=== PATIENT | male | born 1930 | race Caucasian/White ===

== ENCOUNTER 2020-03-13 07:24 | Emergency (ER) | payer MEDICARE ==
[~2020-03-13] VITALS: Ht 175.3 cm; Wt 67.0 kg
[~2020-03-13 07:24] MED LIST: ASPI-515 PO; CHOL200040 PO; INFL100V IV; LEVO50TA PO; METO25TA35 PO; MULT-717 PO; OMEG500C PO; OMEP-110 PO; POTA10TA6 PO; PRAV20TA2 PO; SELE200T10 PO; TRAM50TA2 PO; VITA1TAB42 PO
--- NOTE | 2020-03-13 07:38 | NUR ---
KHUSHBU GOMEZ, PT WITH GLF LAC TO R UA. PT WITH -LOC, NO DIZZINESS, CP, SOB. PT WITH REPORTED BP BY EMS, 90/40S THEN UPON ENTERING ED 70/30. BP IN RM, 151/57. PT AOX4. REPORTS HE DOES TAKE BP MEDS BUT DID NOT TAKE THEM THIS AM. PT STATES HE WAS TRYING TO OPEN THE SLIDING DOOR TO TAKE HIS DOG OUT AND SLIPPED CAUGHT HIS ARM ON THE DOOR, SUSTAINING A 2IN LAC PER EMS REPORT, LAC BANDAGED UPON ARRIVAL. PT THEN LANDED ON HIS KNEE, SMALL ABRASION NOTED TO L KNEE. PT TO CARD MONITOR, BP, CONT PULSE OX Addendum: 03/13/20 at 0746 by [email or web address] PT WITH FSBG OF 66 PER EMS
--- NOTE | 2020-03-13 08:14 | NUR ---
KARY , WANTS TO BE CALLED WHEN PT IS READY FOR DC
[2020-03-13 08:18] LABS: ALBUMIN 3.3 g/dL (3.4-5.0); ANION GAP 8 mmol/L (5-15); CALCIUM 8.8 mg/dL (8.5-10.1); CHLORIDE 109 mmol/L (98-107); CREATININE 1.67 mg/dL (0.7-1.3)
[2020-03-13] MEDS ORDERED: DIPH,PERTUSS(ACELL),TET VAC/PF 0.5 ML IM-VACC ONE ×3 (08:29→09:00)
[2020-03-13 08:46] LABS: BASOPHILS # (AUTO) 0.02 x10^3/uL (0-0.1); BASOPHILS % (AUTO) 0 % (0-1); EOSINOPHILS # (AUTO) 0.11 x10^3/uL (0-0.4); EOSINOPHILS % (AUTO) 2 % (1-7); LYMPHOCYTES # (AUTO) 1.66 x10^3/uL (1-3.4); LYMPHOCYTES % (AUTO) 28 % (22-44); MD SCAN; MEAN CORPUSCULAR HEMOGLOBIN 30.3 pg (27.5-34.5); MEAN CORPUSCULAR HGB CONC 33.5 g/dL (33.2-36.2); MEAN CORPUSCULAR VOLUME 90.7 fL (81-97); MEAN PLATELET VOLUME 10.4 fL (7.4-10.4); MONOCYTES # (AUTO) 0.53 x10^3/uL (0.2-0.8); MONOCYTES % (AUTO) 9 % (2-9); NEUTROPHILS # (AUTO) 3.61 x10^3/uL (1.8-6.8); NEUTROPHILS % (AUTO) 61 % (42-75); PLATELET COUNT 75 x10^3/uL (130-400); RED BLOOD COUNT 5.21 x10^6/uL (4.38-5.82); RED CELL DISTRIBUTION WIDTH 14.2 % (9.4-14.8)
[2020-03-13 09:00] VITALS: BP 176/67
[2020-03-13] MEDS ORDERED: DIPHTHERIA-TETANUS ADULT 0.5ML IM-VACC ONE (09:00)
--- NOTE | 2020-03-13 09:00 | NUR ---
PT BACK FROM IMAGING, MEDICATED PER MAR
[2020-03-13] MEDS ORDERED: LIDOCAINE-MPF 1%, 5ML ONE (09:15)
[2020-03-13] MEDS ORDERED: LIDOCAINE 1%, 10ML INFIL ONE (09:30)
--- NOTE | 2020-03-13 10:10 | NUR ---
PRESSURE DRESSING APPLIED TO RHIANNON. PT TO DC, CALLED TO [facility] PT
== END 2020-03-13 10:28 | disposition home or self-care (01) ==
LOC: ED 08:20
DX: S40.851A Superficial foreign body of right upper arm, initial encounter (principal); I45.9 Conduction disorder, unspecified; W01.0XXA Fall on same level from slipping, tripping and stumbling without subsequent striking against object, initial encounter; Y93.89 Activity, other specified; Y92.098 Other place in other non-institutional residence as the place of occurrence of the external cause; Y99.8 Other external cause status
CPT/HCPCS: 12041; 36415; 80048; 82040; 85025; 90471; 90715; 93005; 99285

== ENCOUNTER → 2020-11-07 | Outpatient (CLI) | payer MEDICARE ==
[~2020-11-07] MED LIST changes: +AMLO2.5T5 PO; +APIX2.5T PO; -ASPI-515 PO; +ASPI-963 PO; +B COMPLEX PO; +CENTRUM SILVER PO; +CHOL10003 PO; +COQ10 PO; +COSENTYX SQ; +DOXA4TAB2 PO; +ISOS30TA8 PO; +METOPROLOL PO; +POTASSIUM PO; +PRAV40TA PO; +SELENIUM PO; +ZINC220C7 PO
== END | disposition home or self-care (01) ==
LOC: CVU 10:52
PROVIDERS: ATTEND Registered Nurse
DX: I65.23 Occlusion and stenosis of bilateral carotid arteries (principal); I10 Essential (primary) hypertension; E78.2 Mixed hyperlipidemia
CPT/HCPCS: 93880

== ENCOUNTER 2021-05-31 07:52 | Outpatient (CLI) | payer MEDICARE ==
[2021-05-31 08:59] LABS: CHLORIDE 101 mmol/L (98-107)
[2021-05-31 09:05] LABS: ALANINE AMINOTRANSFERASE 19 U/L (12-78); ALBUMIN 3.4 g/dL (3.4-5.0); ALKALINE PHOSPHATASE 73 U/L (45-117); ANION GAP 7 mmol/L (5-15); BILIRUBIN,TOTAL 1.5 mg/dL (0.2-1.0); CHOL/HDL RATIO 2.8; CHOLESTEROL, TOTAL 109 mg/dL (140-239); CREATININE 1.44 mg/dL (0.7-1.3); HDL CHOL % 36 % (26-37); HDL CHOLESTEROL (DIRECT) 39 mg/dL (40-60); LDL CHOLESTEROL,CALCULATED 58 mg/dL (54-169); LDL/HDL RATIO 1.5 (0.5-3.0); TOTAL PROTEIN 7.2 g/dL (6.4-8.2); TRIGLYCERIDES 58 mg/dL (50-200); VLDL CHOLESTEROL 12 mg/dL (0-25)
== END 2021-05-31 23:59 | disposition home or self-care (01) ==
LOC: LAB 07:52
PROVIDERS: ATTEND Family Medicine
DX: I11.0 Hypertensive heart disease with heart failure (principal); N17.0 Acute kidney failure with tubular necrosis; E78.2 Mixed hyperlipidemia; I50.31 Acute diastolic (congestive) heart failure; I50.9 Heart failure, unspecified; I48.91 Unspecified atrial fibrillation; I21.4 Non-ST elevation (NSTEMI) myocardial infarction; I25.10 Atherosclerotic heart disease of native coronary artery without angina pectoris; I25.119 Atherosclerotic heart disease of native coronary artery with unspecified angina pectoris; I27.20 Pulmonary hypertension, unspecified
CPT/HCPCS: 36415; 80053; 80061

== ENCOUNTER 2021-06-10 07:56 | Observation (INO) | payer MEDICARE ==
[~2021-06-10] VITALS: Ht 172.7 cm; Wt 66.0 kg
[2021-06-10] MEDS ORDERED: CARV6.2512 PO (08:50)
[2021-06-10] MEDS ORDERED: LOSA50TA14 PO (08:53)
[2021-06-10] MEDS ORDERED: LOSA25TA25 PO (08:53)
[2021-06-10 09:45] LABS: BASOPHILS % (AUTO) 1 % (0-1); EOSINOPHILS % (AUTO) 2 % (1-7); LYMPHOCYTES % (AUTO) 24 % (22-44); MEAN CORPUSCULAR HEMOGLOBIN 29.6 pg (27.5-34.5); MEAN CORPUSCULAR HGB CONC 33.7 g/dL (33.2-36.2); MEAN PLATELET VOLUME 10.6 fL (7.4-10.4); MONOCYTES % (AUTO) 11 % (2-9); NEUTROPHILS % (AUTO) 62 % (42-75); PLATELET COUNT 88 x10^3/uL (130-400); RED CELL DISTRIBUTION WIDTH 15.2 % (9.4-14.8)
[2021-06-10 09:49] LABS: INTERNATIONAL NORMALIZED RATIO 1.08 (0.93-1.1); PROTHROMBIN TIME 11.5 Seconds (9.6-11.5)
[2021-06-10 09:53] LABS: ANION GAP 6 mmol/L (5-15); CALCIUM 8.5 mg/dL (8.5-10.1); CHLORIDE 99 mmol/L (98-107)
[2021-06-10 09:57] LABS: CREATININE 1.41 mg/dL (0.7-1.3)
[2021-06-10] MEDS ORDERED: CEFAZOLIN 1,000 MG ONE (10:18)
[2021-06-10] MEDS ORDERED: FENTANYL PF 100 MCG/2ML ONE (10:18)
[2021-06-10] MEDS ORDERED: CEFAZOLIN PMX 1GM/50ML 50 ML ONE (10:18)
[2021-06-10] MEDS ORDERED: MIDAZOLAM 1 MG/ML, 5ML ONE (10:18)
[2021-06-10] MEDS ORDERED: LIDOCAINE 2%, 20ML ONE (10:18)
[2021-06-10] MEDS ORDERED: HOLD MEDICATION MC PRN (11:30)
[2021-06-10] MEDS: SODIUM CHLORIDE 0.9% 1,000 ML IV SCH ×3 (11:35→23:58)
[2021-06-10] MEDS: PLEASE ENTER ALLERGIES MC SCH ×2 (11:36→16:24)
[2021-06-10 14:38] VITALS: BP 151/74
[2021-06-10] MEDS: ACETAMINOPHEN 325 MG TABLET PO PRN (14:41)
[2021-06-10] MEDS ORDERED: AMLODIPINE 5 MG TABLET PO ONE (17:00)
[2021-06-10] MEDS: CEFAZOLIN PMX 1GM/50ML 50 ML IVPB SCH (18:09)
[2021-06-10 19:12] VITALS: BP 170/80
[2021-06-10] MEDS ORDERED: CHOLECALCIFEROL 1,000 UNIT TABLET PO SCH (21:00)
[2021-06-10] MEDS ORDERED: PRAVASTATIN 40 MG TABLET PO SCH (21:00)
[2021-06-10] MEDS ORDERED: AMLODIPINE 2.5 MG TABLET PO SCH (21:00)
[2021-06-10 21:30] VITALS: BP 185/70
[2021-06-10] MEDS: DOXAZOSIN 2MG TABLET PO SCH (21:32)
[2021-06-10] MEDS: SODIUM CHLORIDE FLUSH 10ML SYR IVF SCH (21:33)
[2021-06-11] MEDS: PLEASE ENTER ALLERGIES MC SCH (00:54)
[2021-06-11 01:52] VITALS: BP 156/71
[2021-06-11] MEDS: CEFAZOLIN PMX 1GM/50ML 50 ML IVPB SCH (02:25)
[2021-06-11] MEDS ORDERED: CARVEDILOL 3.125 MG TABLET PO SCH (06:00)
[2021-06-11] MEDS ORDERED: LEVOTHYROXINE 50 MCG TABLET PO SCH (06:00)
[2021-06-11 07:46] VITALS: BP 158/75
[2021-06-11] MEDS: SODIUM CHLORIDE 0.9% 1,000 ML IV SCH (09:00)
[2021-06-11] MEDS ORDERED: ZINC SULFATE 220 MG CAPSULE PO SCH (09:00)
[2021-06-11] MEDS ORDERED: LOSARTAN 50MG TABLET PO SCH (09:00)
[2021-06-11] MEDS ORDERED: ISOSORBIDE MONONITRATE ER 30 MG TABLET PO SCH (09:00)
[2021-06-11] MEDS ORDERED: ACET325T26 PO (09:08)
[2021-06-11] MEDS: ACETAMINOPHEN 325 MG TABLET PO PRN (09:16)
[2021-06-11] MEDS: DOXAZOSIN 2MG TABLET PO SCH (09:17)
[2021-06-11] MEDS: SODIUM CHLORIDE FLUSH 10ML SYR IVF SCH (09:17)
== END 2021-06-11 11:15 | disposition home or self-care (01) ==
LOC: CACL 07:56 → 5SO 11:10 → CACL 11:10 → 5SO 11:30
PROVIDERS: ADMIT Internal Medicine Cardiovascular Disease; ATTEND Internal Medicine Cardiovascular Disease
DX: I49.5 Sick sinus syndrome (principal); I48.91 Unspecified atrial fibrillation; I10 Essential (primary) hypertension; I25.10 Atherosclerotic heart disease of native coronary artery without angina pectoris; E78.2 Mixed hyperlipidemia; Z79.899 Other long term (current) drug therapy; Z79.01 Long term (current) use of anticoagulants
CPT/HCPCS: 33207; 36005; 36415; 71045; 71046; 80048; 85025; 85610; 93005; 96365; 96366; 99156; C1779; C1786; C1892; G0378; J0690; J2250; J3010; J3490; Q9967